=== PATIENT | female | born 1945 | race Caucasian/White ===

== ENCOUNTER 2023-02-26 09:15 | Outpatient (CLI) | payer MEDICARE, SELFPAY ==
--- NOTE | 2023-02-26 10:04 | ECHO_ITS ---
Patient Info Name: Shikha Amos Age: 77 years : 1945 Gender: Female Ht: 67 in Wt: 160 lbs BSA: 1.86 m2 HR: 89 bpm BP: 204 / 108 mmHg Heart Rhythm: Sinus Rhythm Technical Quality: Fair Exam Date: 02/26/2023 10:17 AM Exam Location: [facility] Pulmonary Patient Status: Outpatient Admit Date: 02/26/2023 Staff Ordering Physician: Tash Orozco PA-C Flipping Machine Operator: Neno Marinelli RDCS Attending Provider: Tash Orozco PA-C Referring Physician: Pam KEY; Exam Type: CA echo doppler color flow Study Info Indications - prominent right pulmonary artery Complete two-dimensional, color flow and Doppler transthoracic echocardiogram is performed. Summary 1. Complete two-dimensional, color flow and Doppler transthoracic echocardiogram is performed. 2. Left ventricular chamber dimension is normal. 3. Left ventricular systolic function is normal, estimated at 65-70%. 4. There is mildly increased left ventricular wall thickness. 5. Left ventricular septal wall motion is abnormal with septal motion related to bundle branch block. 6. The left ventricular diastolic function is grade I diastolic dysfunction. 7. Right ventricular chamber dimension is severely enlarged. 8. Right ventricular systolic function is normal. 9. Left atrial chamber dimension is severely enlarged. 10. Right atrial chamber dimension is severely enlarged. 11. Interatrial septum appears aneurysmal. 12. There is mild tricuspid valve regurgitation. 13. There is mild pulmonic regurgitation. Left Ventricle Left ventricular chamber dimension is normal. Left ventricular systolic function is normal, estimated at 65-70%. There is mildly increased left ventricular wall thickness. Left ventricular septal wall motion is abnormal with septal motion related to bundle branch block. The left ventricular diastolic function is grade I diastolic dysfunction. Right Ventricle Right ventricular chamber dimension is severely enlarged. Right ventricular systolic function is normal. Left Atria Left atrial chamber dimension is severely enlarged. Right Atria Right atrial chamber dimension is severely enlarged. Atrial Septum Interatrial septum appears aneurysmal. Aortic Valve The aortic valve is probable trileaflet. There is mild aortic valve sclerosis. There is no aortic valve stenosis. There is no aortic valve regurgitation. Pulmonic Valve There is mild pulmonic regurgitation. Mitral Valve The mitral valve has normal leaflets. There is no mitral valve stenosis. There is trace mitral valve regurgitation. The mitral valve annulus is mildly calcified. Tricuspid Valve There is mild tricuspid valve regurgitation. Pericardium/Pleural There is trivial pericardial effusion. Inferior Vena Cava Normal inferior vena cava with >50% collapse upon inspiration consistent with normal right atrial pressure, 3 mmHg. Aorta The aortic root size at the sinus of Valsalva is normal. Left Ventricular Outflow Tract Name Value Normal LVOT 2D LVOT Diameter 2.1 cm LVOT Doppler LVOT Peak Gradient 3 mmHg LVOT Mean Gradient 1 mmHg LVOT VTI 17 cm
== END 2023-02-26 09:16 | disposition home or self-care (01) ==
PROVIDERS: PCP Family Medicine; Visit Provider Physician Assistant Medical
DX: R93.89 Abnormal findings on diagnostic imaging of other specified body structures (principal); I07.1 Rheumatic tricuspid insufficiency; I37.1 Nonrheumatic pulmonary valve insufficiency
CPT/HCPCS: 93306

== ENCOUNTER 2023-03-20 09:21 | Outpatient (CLI) | payer MEDICARE, SELFPAY ==
--- NOTE | 2023-03-28 09:42 | WPDSLEEPSTUD ---
Sleep Study Date of Study: 03/19/23 Ordering Provider: Bogdan Marshall DO Interpreting Physician: Yenni Epps MD Sleep Study Type: Polysomnogram Height: 1.7 m Weight: 72.121 kg Body Mass Index: 24.9 Neck Circumference (inches): 14 [place]: 3 Reason for Sleep Study Severe right ventricular and biatrial enlargement on echocardiogram Sleep History Shikha Amos is a 77 year old female with history of hypertension, dyslipidemia who presented to the sleep lab for a sleep study ordered by her stacker straightener for evaluation of possible sleep apnea as a contributing factor to her right ventricular enlargement on echocardiogram. She never awakens from sleep short of breath. She does not have trouble sleeping when she has a cold. She never suddenly wakes up gasping for breath during the night. She never has breathing problems at night. She never sweats excessively at night. She never notices her heart pounding or beating irregularly during the night. She does not fall asleep during the day, involuntarily, or while driving. She never experiences loss of muscle tone with strong emotion. She never feels paralyzed on waking or falling asleep. She does not feel afraid of going to sleep. She does not have nightmares. She occasionally recalls her dreams. She does not feel sad or depressed. She occasionally feels anxiety or worry about things. She does not notice parts of her body jerk or kick during the night. She never feels crawling or aching feelings in her legs. She occasionally feels bothered by pain during the day and never awakened by pain during the night. She occasionally wakes up feeling stiff in the morning with pain in her neck, spine, or joints. Normal bedtime is around 12am on the weekdays and same on the weekends, taking 10 minutes to fall asleep. She typically gets about 6 hours of sleep per night. Her wake up time is around 6:30am on the weekdays and same on the weekends. She typically wakes up around once per night, awake for only a few minutes and she will go to the bathroom and come back to bed. Habits: Former tobacco smoker. Drinks about 1 caffeinated beverage per day. No alcohol or recreational substances. [facility] Past Medical History Medical History Abnormal skin growth Anxiety Dyslipidemia Hyperopia of both eyes Hypertension Screening for cholesterol level Screening for thyroid disorder Surgical History Surgical History H/O dilation and curettage Family History Family History Grandparent Heart disease Cerebrovascular accident Social History Social History Smoking status: Never smoker Alcohol intake: never Substance use: never Lack of Transportation: No Lack of Food: Never True Current Housing: I Have Housing Concerned About Future Housing: No Difficulty Paying Gas/Electric Bills: No Difficulty Paying for Meds: No Currently Unemployed: No Education: Associate Degree Difficulty w/ Childcare or Family Care: No Living arrangements: alone Occupation/Education: retired Gender identity (if verbalized by the patient): Female Medications Home Medications Medication Instructions Recorded Confirmed Type alprazolam 0.25 mg tablet (Xanax) 0.25 mg PO QHS PRN anxiety #10 tabs 01/02/23 03/06/23 Rx lisinopril 20 mg tablet 20 mg PO DAILY #90 tabs 01/02/23 03/06/23 Rx pravastatin 20 mg tablet 20 mg PO DAILY #90 tabs 03/06/23 03/06/23 Rx Sleep Procedure This test was performed using the [employer] multiple channel system including EOG, EEG, submental EMG, EKG, nasal and oral airflow using thermistors and nasal pressure sensors, chest and abdominal belts for body position data, and pulse oximetry. Video monitoring was also performed. The study was scored using [facility] guid
[2023-03-28 09:49] VITALS: BMI 24.9
== END 2023-03-20 13:40 | disposition home or self-care (01) ==
LOC: ANHCSM 09:22
PROVIDERS: PCP Family Medicine; Visit Provider Internal Medicine Cardiovascular Disease
DX: G47.10 Hypersomnia, unspecified (principal); G47.9 Sleep disorder, unspecified; I10 Essential (primary) hypertension; E78.5 Hyperlipidemia, unspecified
CPT/HCPCS: 95810

== ENCOUNTER 2025-01-24 13:17 | Outpatient (CLI) | payer MEDICARE, SELFPAY ==
--- NOTE | ~2025-01-24 | US_ITS ---
Procedure: Duplex Doppler examination of the bilateral carotids. Indication: Carotid bruit Technique: Real time, color-flow and pulse wave Doppler examination of the bilateral carotids was performed. Findings: Zhou scale ultrasonography of the right neck demonstrated no significant plaque. There was demonstrat ion of normal color-flow and Doppler waveforms within the right common, internal and external carotid arteries. The peak systolic velocities in the right common, internal and external carotid arteries w ere demonstrated to be 109 cm/sec, 109 cm/sec and 58 cm/sec respectively. The right ICA/CCA ratio was 1.0.The proximal right internal carotid artery demonstrates 0% stenosis relative to the normal dista l artery lumen diameter. Zhou scale sonography of the left neck demonstrated no significant plaque. There was demonstration of normal color-flow and wave forms within the left common, internal and external carotid arteries. The peak systolic velocities in the left common, internal and external carotid arteries were demonstrate d to be 119cm/sec, 72 cm/sec and 84 cm/sec respectively. The left ICA/CCA ratio was 0.6. The proximal left internal carotid artery demonstrates 0% stenosis relative to the normal distal artery lumen otis meter. There was antegrade flow demonstrated in the bilateral vertebral arteries. Impression: No hemodynamically significant stenosis of the bilateral internal carotid arteries. Antegrade flow in the bilateral vertebral arteries. Note: The methodology used is an indirect measurement validated against a direct method (such as the NASCET criteria) that compares diameters at the stenosis to the distal ICA. Reviewed, dictated and finalized at [facility]. Impression: No hemodynamically significant stenosis of the bilateral internal carotid arter ies. Antegrade flow in the bilateral vertebral arteries. Note: The methodology used is an indirect measurement validated against a direct meth od (such as the NASCET criteria) that compares diameters at the stenosis to the distal ICA.
== END 2025-01-24 13:18 | disposition home or self-care (01) ==
PROVIDERS: PCP Physician Assistant Medical; Visit Provider Physician Assistant Medical
DX: R09.89 Other specified symptoms and signs involving the circulatory and respiratory systems (principal)
CPT/HCPCS: 93880

== ENCOUNTER 2025-09-18 22:19 | Observation (INO) | payer MEDICARE, SELFPAY ==
--- NOTE | ~2025-09-18 | CT_ITS ---
EXAMINATION: CT abdomen pelvis w con DATE: 09/19/2025 00:03 INDICATION: Right upper quadrant abdominal pain. TECHNIQUE: Computed tomography (CT) of the abdomen and pelvis was performed with 100 mL Omnipaque 350 intravenous contrast. Automated exposure control and iterative reconstruction technique were employed. The dose-length product was 507.69 mGy-cm. COMPARISON: None. FINDINGS: The visualized portions of the lung bases demonstrate minimal atelectasis. No pleural effusion. Cardiomegaly is noted. No pericardial effusion. There is a small sliding hiatal hernia. The liver is normal. There are gallstones in the gallbladder, which is distended with wall thickening, mucosal discontinuity, and pericholecystic fat stranding, consistent with acute necrotic cholecystitis. The spleen, pancreas, and adrenal glands are normal. There are cysts in the kidneys measuring up to 2.1 cm on the left. There is diverticulosis of the colon without evidence of diverticulitis. The appendix is normal. There are no pathologically enlarged lymph nodes. There is no free intraperitoneal fluid. There is thoracolumbar levoscoliosis and severe spondylosis. There is severe osteoarthritis of the hips. IMPRESSION: 1. Acute necrotic cholecystitis. Reviewed, dictated and finalized at location E. ITY SYSTEM REPAIRER
[2025-09-18 22:24] VITALS: BP 147/103; PULSE 118; RESP 18; TEMP 36.4; O2SAT 100
--- NOTE | 2025-09-18 22:29 | ECG_ITS ---
Test Date: 2025-09-18 22:42:57 Measurements Intervals [place] Rate: 95 P: 50 ND: 137 QRS: -12 QRSD: 162 T: 50 QT: 378 QTc: 477 Interpretive Statements SINUS RHYTHM RIGHT BUNDLE BRANCH BLOCK VOLTAGE CRITERIA FOR LVH ST ABNORMALITY IN ANTEROLATERAL LEADS- CONSIDER ISCHEMIA BASELINE ARTIFACT- I, II, III, AVR, AVL, AVF ABNORMAL ECG No previous ECG available for comparison Electronically Signed On 09-19-2025 06:20:41 HVAC DESIGN ENGINEER by Bogdan Marshall D.O.
[2025-09-18 22:59] LABS: Hematocrit 49.3 % (37.0-47.0); Hemoglobin 16.1 g/dL (12.0-15.0); Immature Granulocyte Percent A 0.5 % (0-0.5); Lymphocytes Absolute Auto 1.80 K/mm3 (0.9-3.2); Mean Corpuscular HGB Conc 32.7 g/dl (32-36); Mean Corpuscular Hemoglobin 30.1 pg (26-34); Mean Corpuscular Volume 92.1 fl (80-100); Nucleated Red Blood Cells Absolute Auto 0.000 K/mm3 (0.0-0.012); Nucleated Red Blood Cells Perc 0.0 % (0.0-0.2); Platelet Count Result 342 k/mm3 (150-375); Red Blood Count 5.35 M/mm3 (4.2-5.4); White Blood Count 15.2 K/mm3 (4.5-10.0)
--- NOTE | 2025-09-18 23:14 | ED_ITS ---
HPI - Abdominal Pain General Chief Complaint: Abdominal Pain Stated Complaint: RUQ abd pain, nausea Time Seen by Provider: 09/18/25 22:29 History of Present Illness HPI narrative: 80-year-old female with history of hypertension hyperlipidemia presenting with epigastric pain and right upper quadrant pain radiating towards her back intermittently for the last several days. She is having episodes of what she thinks could be a gallbladder attack per her discussion with her friends. She is having pain in her epigastrium associated with nausea vomiting that is short- lived and comes in waves. No history of any abdominal surgeries or gallstones to her knowledge. No fever, chills, chest pain, shortness a breath. She was otherwise in her normal state of health. No recent medication changes. States she has not eat much today as she was having intermittent nausea and vomiting. No diarrhea or bloody bowel movements or hematemesis. No traumatic injuries. Related Data Home Medications ?Medication ?Instructions ?Recorded ?Confirmed ?Last Taken ?Type cyanocobalamin (vitamin B-12) 500 500 mcg PO DAILY 08/08/25 Unknown History mcg tablet Allergies Allergy/AdvReac Type Severity Reaction Status Date / Time No Known Allergies Allergy Verified 07/04/25 08:59 Review of Systems 2 Review of Systems: As reviewed above in HPI All systems reviewed & are unremarkable except as noted in HPI and below PMFSH Past Medical History Medical History Vitamin B12 deficiency Scoliosis Hypothyroidism Anxiety Dyslipidemia Hyperopia of both eyes Abnormal skin growth Screening for cholesterol level Hypertension Surgical History Surgical History H/O dilation and curettage Family History Family History Grandparent Heart disease Cerebrovascular accident Social History Social History Social History: 06/27/25 declined [facility] Smoking status: Never smoker Alcohol intake: never Substance use: never Lack of Transportation: No Lack of Food: Never True Current Housing: I Have Housing Concerned About Future Housing: No Difficulty Paying Gas/Electric Bills: No Difficulty Paying for Meds: No Currently Unemployed: No Education: Associate Degree Difficulty w/ Childcare or Family Care: No Living arrangements: alone Occupation/Education: retired Gender identity (if verbalized by the patient): Female Exam 2 Narrative: GENERAL: [Well-appearing, well-nourished, and in no acute distress.] HEAD: [Normocephalic, atraumatic.] EYES: [PERRLA and EOMI.] ENT: Nares clear, no rhinorrhea or epistaxis. Mucous membranes moist. NECK: Supple. CHEST: [Clear to auscultation. No respiratory distress.] HEART: [Regular rate and rhythm]. No murmur heard. [Normal peripheral pulses.] ABDOMEN: tender in the epigastrium and right upper quadrant with a positive Carnes sign. No rebound guarding or peritonitis. EXTREMITIES: Normal range of motion. [No edema.] SKIN: Warm, dry, no rash. NEURO: [No focal deficits]. Alert and oriented [x3.] PSYCH: [Normal mood and affect.] Course Vital Signs Vital signs: Vital Signs Temperature 36.4 C 09/18/25 22:24 Pulse Rate 118 H 09/18/25 22:24 Respiratory Rate 18 09/18/25 22:24 Blood Pressure 147/103 H 09/18/25 22:24 Pulse Oximetry 100 09/18/25 22:24 Temperature 36.4 C 09/18/25 22:24 Pulse Rate 118 H 09/18/25 22:24 Respiratory Rate 18 09/18/25 22:24 Blood Pressure 147/103 H 09/18/25 22:24 Pulse Oximetry 100 09/18/25 22:24 [facility] Narrative Medical decision making narrative: 80-year-old female with history of hypertension hyperlipidemia presenting with epigastric pain and right upper quadrant pain radiating towards her back intermittently for the last several days. She is having episodes of what she thinks could be a gallbladder attack per her discussion with her friends. She is having pain in her epigastrium associated with nausea vomiting that is short- lived and comes in waves. No history of any abdominal surgeries or gallstones to her knowledge. No fever, chills, chest pain, shortness a breath. She was otherwise in her normal state of health. No recent medication changes. States she has not eat much today as she was having intermittent nausea and vomiting. No diarrhea or bloody bowel movements or hematemesis. No traumatic injuries. Tender in the epigastrium and right upper quadrant with a positive Carnes sign. No rebound guarding or peritonitis. Mildly tachycardic, normal blood pressure mildly elevated but chronic. No tachypnea, fever, hypoxemia. Symptoms consistent with cholelithiasis, cholecystitis, less likely cholangitis or renal colic/ pancreatitis/ gastroenteritis. given her age and risk factors epigastric pain could also be referred from cardiac causes such as ACS. EKG troponin laboratory studies and a CT scan ordered. She is currently pain-free and symptom-free as she states her pain symptoms only common waves and currently she has no symptoms. Placed on bus driver/monitor and doing well. Heart rate resolved pulse 92 at this time, hemodynamically stable. Will keep monitoring her a while workup and CT and workup ordered. LFTs largely unremarkable. Patient's heart rate came down with fluids and starting antibiotics after we reviewed the CT scan showing concerns for cholecystitis. She has a inflamed distended gallbladder with pericholecystic fluid and stone. No obvious obstruction. Some early mucosal breakdown after discussion with radiologist. Spoke to General surgery Dr. Leblanc who will see the patient this morning for likely surgical interventions and patient is made NPO now and will be admitted to the hospitalist service. Spoke to Arturo the mid- level provider covering the hospitalist service and patient was placed on to a telemetry monitored bed. Zosyn ordered, lactic acid and blood cultures obtained, additional fluids and p.r.n. medications obtained in ordered. Differential Diagnosis Differential Diagnosis: cholelithiasis, cholecystitis, less likely cholangitis or renal colic/ pancreatitis/ gastroenteritis. given her age and risk factors epigastric pain could also be referred from cardiac causes such as ACS Lab Data MDM Lab Attestation statement: I personally reviewed the patient's lab results. 09/18/25 22:52 09/18/25 22:52 Labs: Lab Results 09/18/25 Range/Units 22:52 WBC 15.2 H (4.5-10.0) K/mm3 RBC 5.35 (4.2-5.4) M/mm3 Hgb 16.1 H (12.0-15.0) g/dL Hct 49.3 H (37.0-47.0) % MCV 92.1 (80-100) fl MCH 30.1 (26-34) pg MCHC 32.7 (32-36) g/dl RDW 12.5 (11.5-14.5) % Plt Count 342 (150-375) k/mm3 MPV 8.7 (7.4-10.4) fl Immature Gran % (Auto) 0.5 (0-0.5) % Neut % (Auto) 78.1 H (45.5-73.1) % Lymph % (Auto) 11.9 L (18.3-44.2) % Piatt % (Auto) 8.2 (2.6-8.5) % Eos % (Auto) 0.7 (0-4.4) % Baso % (Auto) 0.6 (0.2-1.2) % Lymph # (Auto) 1.80 (0.9-3.2) K/mm3 Piatt # (Auto) 1.3 H (0.1-0.6) K/mm3 Eos # (Auto) 0.1 (0-0.3) K/mm3 Baso # (Auto) 0.1 (0.0-0.1) K/mm3 Abs Immat Gran (auto) 0.07 H (0.00-0.031) K/mm3 Absolute Neuts (auto) 11.9 H (1.3-6.7) K/mm3 Absolute Nucleated RBC 0.000 (0.0-0.012) K/mm3 Nucleated RBC % 0.0 (0.0-0.2) % Sodium Pending Potassium Pending Chloride Pending Carbon Dioxide Pending Anion Gap Pending BUN Pending Creatinine Pending Estim Creat Clear Calc Pending Estimated GFR Pending Glucose Pending Calcium Pending Total Bilirubin Pending AST Pending ALT Pending Alkaline Phosphatase Pending Troponin I Pending Total Protein Pending Albumin Pending Lipase Pending Imaging Data Attestation: I personally reviewed and interpreted this imaging study as follows: My impression: acute zoë Radiologist's impression: acute zoë Critical Care Time Critical Care Time Critical Care Time: Yes Time Type: Intermittent Initial evaluation, discuss w/ involved parties, attempting to gather old records: 10 minutes Documenting medical record: 5 minutes Review of results (EKG's, labs, imaging): 5 minutes Serial repeat bedside evaluation: 10 minutes Discussing case with multiple memebers of the care team and consultants: 5 minutes Total Critical Care Time: 35 Discharge Plan Discharge Clinical Impression: Acute calculous cholecystitis Patient Disposition: Still a Patient Condition: Stable Instructions: Antibiotic Form Patient Language: Solomon Islander Prescriptions: No Action cyanocobalamin (vitamin B-12) 500 mcg tablet 500 mcg PO DAILY pravastatin 20 mg tablet See Rx Instructions .ROUTE .COMPLEX Qty: 90 2RF Dose Instruction: Take 1 tablet by mouth once daily Rx Instructions: Take 1 tablet by mouth once daily lisinopril 20 mg tablet 20 mg PO DAILY Qty: 90 1RF Follow-up/Referrals: Tash Orozco PA-C [Primary Care Provider, [facility]] Time of Disposition: 00:51
[2025-09-18 23:17] LABS: Alanine Aminotransferase 18 U/L (6-35); Albumin Level 3.9 g/dL (3.5-5.1); Alkaline Phosphatase 88 U/L (38-126); Anion Gap 7 mmol/L (4-12); Aspartate Amino Transferase 23 U/L (14-36); Bilirubin,Total 1.5 mg/dL (0.2-1.3); Blood Urea Nitrogen 14 mg/dL (7-17); Calcium 9.1 mg/dL (8.4-10.2); Carbon Dioxide 23 mmol/L (22-30); Chloride 104 mmol/L (98-107); Estimated CRCL calculation 33 ml/min; Estimated Glomerular Filt Rate 47; Glucose 175 mg/dL (65-110); Lipase 129 U/L (23-300); Potassium 3.6 mmol/L (3.4-5.0); Sodium 134 mmol/L (137-145); Total Protein 7.4 g/dL (6.3-8.2)
[2025-09-18 23:28] LABS: Troponin I < 0.012 ng/mL (0.000-0.034)
[2025-09-19] VITALS (19 sets, daily range): BP systolic 106–157; BP diastolic 52–70; PULSE 68–93; RESP 17–20; TEMP 36.2–36.9; O2SAT 94–100; BMI 26.1
[2025-09-19 00:14] LABS: Add Urine Microscopic? YES; Appearance Urine Turbid (Clear); Glucose Urine UA Trace mg/dL (Negative); Leukocyte Esterase Ur 3+ LEU/UL (Negative); Need Manual Microscopic Reviewed; Nitrate Urine Positive (Negative); Non Pathogenic Casts >20; Specific Grav Ur 1.021 (1.001-1.035)
[2025-09-19] MEDS: LACTATED RINGERS 1,000 ML 999 ML IV CONT ×2 (00:46→00:47)
[2025-09-19] MEDS: PIPERACILLIN/TAZOBACTAM SOD 4.5 GM in SODIUM CHLORIDE 0.9% IV 100 ML 200 ML IVPB (00:47)
--- NOTE | 2025-09-19 00:49 | PM.IMHP2 ---
H&P: HPI History of Present Illness Date/Time: 09/19/25 00:49 Chief Complaint: Abdominal pain, nausea, acute cholecystitis Narrative: The patient is an 80-year-old female who presents to the hospital with a chief complaint of abdominal pain. The pain began on evening. She describes the pain as located in the upper abdomen. The pain was at its worst on night, then tapered off, and subsequently worsened again last night (Friday night). The patient endorses nausea and vomiting on but denies any currently. She denies any fever or chills. The patient notes she has not had anything to eat or drink since yesterday morning. Workup in the ER showed elevated WBC of 15.2, Sodium 134, Potassium 3.6, Cr mildly elevated at 1.12 with estimated CrCl of 33 and eGFR of 47 indicating MAHSA. Urinalysis also profoundly dirty appearing but also heavily contaminated with epithelial cells and indications of dehydration with >20 urine casts and 2+ urine ketones. Patient denies dysuria, fever or LOWER abdominal pain, indicating only epigastric and RUQ pain. Review of Systems Review of Systems: All systems reviewed & are unremarkable except as noted in HPI and below PMFSH Past Medical History Medical History Vitamin B12 deficiency Scoliosis Hypothyroidism Anxiety Dyslipidemia Hyperopia of both eyes Abnormal skin growth Screening for cholesterol level Hypertension Surgical History Surgical History H/O dilation and curettage Family History Family History Grandparent Heart disease Cerebrovascular accident Social History Social History Social History: 06/27/25 declined [facility] Smoking status: Former smoker Alcohol intake: never Substance use: never Lack of Transportation: No Lack of Food: Never True Current Housing: I Have Housing Concerned About Future Housing: No Difficulty Paying Gas/Electric Bills: No Difficulty Paying for Meds: No Currently Unemployed: No Education: Associate Degree Difficulty w/ Childcare or Family Care: No Living arrangements: alone Occupation/Education: retired Gender identity (if verbalized by the patient): Female Spiritual care concerns: No Meds Home Medications and Allergies Home Medications ?Medication ?Instructions ?Recorded ?Confirmed ?Type cyanocobalamin (vitamin B-12) 500 500 mcg PO DAILY 07/02/24 09/19/25 History mcg tablet pravastatin 20 mg tablet See Rx Instructions .Route 05/14/25 09/19/25 Rx .COMPLEX #90 tabs lisinopril 20 mg tablet 20 mg PO DAILY #90 tabs 06/29/25 09/19/25 Rx Allergies Allergy/AdvReac Type Severity Reaction Status Date / Time No Known Allergies Allergy Verified 09/19/25 05:01 Vital Signs Vital Signs - 24 hr 09/18/25 22:24 09/19/25 00:28 Temperature 36.4 C 36.4 C Pulse Rate 118 H Respiratory Rate 18 Blood Pressure 147/103 H Pulse Oximetry 100 Exam Narrative: GENERAL: Appears younger than stated age, no acute distress HEAD: Normocephalic, atraumatic. ENT:? Mucous membranes moist. CHEST: Clear to auscultation.? No respiratory distress. HEART: Borderline tachycardic rate and regular rhythm. ? Normal peripheral pulses. ABDOMEN: Soft, epigastric/right upper quadrant tenderness to palpation without guarding or rebound EXTREMITIES: Normal range of motion. No peripheral edema. SKIN: Warm dry normal color NEURO: Alert and oriented x3. PSYCH: Normal mood and affect Results Labs Labs: Short CBC 09/18/25 Range/Units 22:52 WBC 15.2 H (4.5-10.0) K/mm3 Hgb 16.1 H (12.0-15.0) g/dL Hct 49.3 H (37.0-47.0) % Plt Count 342 (150-375) k/mm3 [facility] 09/18/25 22:52 Sodium 134 L Potassium 3.6 Chloride 104 Carbon Dioxide 23 BUN 14 Creatinine 1.12 H Glucose 175 H Calcium 9.1 Cardiac Enzymes 09/18/25 Range/Units 22:52 Troponin I < 0.012 (0.000-0.034) ng/mL Liver Function 09/18/25 Range/Units 22:52 Total Bilirubin 1.5 H (0.2-1.3) mg/dL AST 23 (14-36) U/L ALT 18 (6-35) U/L Alkaline Phosphatase 88 (38-126) U/L Albumin 3.9 (3.5-5.1) g/dL Urine 09/18/25 Range/Units 23:50 Urine Color Dark yellow (Yellow) Urine Appearance Turbid H (Clear) Urine pH 5.5 (5.0-9.0) Ur Specific [place] 1.021 (1.001-1.035) Urine Protein 2+ H (Negative) mg/dL Urine Glucose (UA) Trace H (Negative) mg/dL Pulse Oximetry SpO2 results: 94-100% on room air Attestation: I personally reviewed and interpreted this pulse oximetry as follows: Interpretation: No need for supplemental oxygenation at this time Imaging CT scan - abdomen: My impression: My independent interpretation of CT scan of the abdomen and pelvis with IV contrast shows significant gallbladder distention with inflammation of the gallbladder wall, pericholecystic fluid, gallstones. Moderate stool burden with likely diverticulosis noted and borderline enlarged appendix present. Mild hydronephrosis without obvious ureteral obstruction and a left simple renal cyst also noted. Quality VTE Prophylaxis VTE prophylaxis: mechanical ordered If No VTE Prophylaxis Answer both mechanical and pharmacologic: Reason no pharmacologic proph: medical contraindication (OR planned) Assessment and Plan Assessment and plan (1) Acute calculous cholecystitis: Code(s): K80.00 - Calculus of gallbladder with acute cholecystitis without obstruction Status: Acute Assessment and Plan: -Dr. Leblanc consulted by ER, will see today -NPO for possible OR -Zosyn given in ER, will continue (2) MAHSA (acute kidney injury): Code(s): N17.9 - Acute kidney failure, unspecified Status: Acute Assessment and Plan: -IV fluids infusing -Highly abnormal UA with signs of dehydration -Recheck labs late morning draw, timed for 0800 -If CrCl does not go above 40 after IV fluids with 09/19 0800 labs, Zosyn dose should be reduced to 2.25 g Q6H (3) Abnormal urinalysis: Code(s): R82.90 - Unspecified abnormal findings in urine Status: Acute Assessment and Plan: -Denies dysuria but appears infected with positive nitrates -IV Zosyn for cholecystitis -No prior cultures available (4) Hypertension: Qualifiers: Hypertension type: primary hypertension Qualified Code(s): I10 - Essential (primary) hypertension Code(s): I10 - Essential (primary) hypertension Status: Chronic Assessment and Plan: -Takes lisinopril daily, hold on 09/19, resume on 09/20 Consultations Consultations: I have discussed the care of this pt with the consulting providers. (Emergency department consulted general surgery, Dr. Leblanc, who will see the patient in the morning) Time Spent with Patient Time with patient: 75 minutes or greater Hospitalist MIPS Advance Care Plan I have confirmed that the patient's Advanced Care Plan is present, code status is documented, or surrogate decision maker is listed in patient medical record.: Yes Medication Reconciliation I have utilized all available resources to obtain, update and review the patients current medications (includes all prescriptions, OTC, herbals, cannabis, and nutritional supplements).: Yes
--- NOTE | 2025-09-19 04:39 | ADMGEN ---
This patient, Shikha Amos, was admitted to 2 Medical Room 249-01.Arrived to unit @0125. Patient oriented to hospital policies and general routines including ID bracelet, bed and alarms, visiting hours, pain management, procedures, bathroom and other care routines, personal items, smoking policy, room service/diet, and visiting hours. Information on how to activate the Rapid Response Team has been discussed. Patient are encouraged to report perceived risks to care and to ask questions if they do not understand what they are told or what they should do.
--- NOTE | 2025-09-19 04:54 | ADMGEN ---
This patient, Shikha Amos, was admitted to Medical Room 249-01. Patient/family oriented to hospital policies and general routines including ID bracelet, bed and alarms, visiting hours, pain management, procedures, bathroom and other care routines, personal items, smoking policy, room service/diet, and visiting hours. Information on how to activate the Rapid Response Team has been discussed. Patient/Family are encouraged to report perceived risks to care and to ask questions if they do not understand what they are told or what they should do.
--- NOTE | 2025-09-19 07:18 | P.PNIM_ITS ---
Assessment and Plan Assessment and Plan (1) Acute calculous cholecystitis: Code(s): K80.00 - Calculus of gallbladder with acute cholecystitis without obstruction Status: Acute Assessment and Plan: - CT A/P with acute necrotic cholecystitis - afebrile, HDS - AST 420, ALT 249, alk phos 183, T bili 3.9 - may require intraoperative IOC vs. ERCP - WBC 15 - general surgery consulted. - NPO for possible OR - continue IV Zosyn (2) MAHSA (acute kidney injury): Code(s): N17.9 - Acute kidney failure, unspecified Status: Acute Assessment and Plan: - admit Cr 1.1, baseline 0.8 - resolved with IV fluids - monitor BMP (3) Abnormal urinalysis: Code(s): R82.90 - Unspecified abnormal findings in urine Status: Acute Assessment and Plan: -Denies urinary symptoms. -on IV Zosyn for cholecystitis, but not feel specific treatment for UTI is needed (4) Hypertension: Qualifiers: Hypertension type: primary hypertension Qualified Code(s): I10 - Essential (primary) hypertension Code(s): I10 - Essential (primary) hypertension Status: Chronic Assessment and Plan: -on lisinopril daily, held perioperatively Plan Code status: full code DVT prophylaxis: SCDs Dispo:TBD pending course Medical Record Review I have reviewed the following patient records and this information was taken into consideration when formulating the assessment and plan.: previous labs Subjective Date/time seen: 09/19/25 07:18 Interval history: Patient seen and examined at bedside. Minimal pain this AM. Denies nausea, vomiting. Review of Systems Review of Systems: All systems reviewed & are unremarkable except as noted in HPI and below Exam Narrative: General: NAD Eyes: EOMI ENT: neck supple Cardiovascular: Regular rate and rhythm Respiratory: Clear to auscultation, respirations even and unlabored on RA Gastrointestinal: Soft, + Carnes's sign Genitourinary: no suprapubic tenderness Musculoskeletal: No edema Skin: warm, dry Neuro: Alert. Psych: Mood appropriate Objective Data Vital Signs Vital Signs: Vital Signs - 24 hr 09/18/25 22:24 09/19/25 00:28 09/19/25 01:01 Temperature 97.6 F 97.6 F 98.5 F Pulse Rate 118 H 93 Respiratory Rate 18 18 Blood Pressure 147/103 H 130/52 L Pulse Oximetry 100 94 Oxygen Delivery 09/19/25 01:35 09/19/25 01:51 09/19/25 04:00 Temperature Pulse Rate 92 89 Respiratory Rate Blood Pressure Pulse Oximetry Oxygen Delivery Room Air Intake/Output Intake/Output: Intake & Output 09/16/25 09/17/25 09/18/25 09/19/25 23:59 23:59 23:59 23:59 Output Total 800 Balance -800 Meds/Results Medications: Active Medications Generic Name Dose Route Start Last Admin Trade Name Freq PRN Reason Stop Dose Admin Acetaminophen 650 mg 09/19/25 00:48 Acetaminophen 325 Mg Tablet PO Q4H PRN Mild Pain (1-3) or Fever Hydrocodone Bitart/Acetaminophen 1 tab 09/19/25 00:48 Hydrocodone/Acetaminophen (*Crx) 5-325 Mg Tablet PO Q4H PRN Pain Rated 4-6 Cyanocobalamin 500 mcg 09/20/25 09:00 Cyanocobalamin 500 Mcg Tablet PO DAILY COUNTS INCLUDE 234 BEDS AT THE [facility] Hydromorphone HCl 0.5 mg 09/19/25 00:48 Hydromorphone Hcl Inj (*Crx) 1 Mg/Ml Syr IV PUSH Q4H PRN Pain Rated 7-10 Lactated Ringer's 1,000 mls @ 110 mls/hr 09/19/25 00:50 Lr - Lactated Ringers Iv IV CONT .Q9H6M COUNTS INCLUDE 234 BEDS AT THE [facility] Piperacillin Sod/Tazobactam 50 mls @ 100 mls/hr 09/19/25 07:00 Sod 3.375 gm/ Sodium Chloride IVPB Q6H COUNTS INCLUDE 234 BEDS AT THE [facility] Lisinopril 20 mg 09/20/25 09:00 Lisinopril 20 Mg Tablet PO DAILY COUNTS INCLUDE 234 BEDS AT THE [facility] Ondansetron HCl 4 mg 09/19/25 00:48 Ondansetron Inj 4 Mg/2 Ml Vial IV PUSH Q4H PRN Nausea Pravastatin Sodium 20 mg 09/20/25 09:00 Pravastatin Sodium 20 Mg Tablet PO DAILY COUNTS INCLUDE 234 BEDS AT THE [facility] Radiology Results: ITS Impressions Abdomen/Pelvis CT 09/19/25 06:36 IMPRESSION: 1. Acute necrotic cholecystitis. Labs Labs: Laboratory Results - last 24 hr 09/18/25 09/18/25 09/19/25 22:52 23:50 00:49 WBC 15.2 H RBC 5.35 Hgb 16.1 H Hct 49.3 H MCV 92.1 MCH 30.1 MCHC 32.7 RDW 12.5 Plt Count 342 MPV 8.7 Immature Gran % (Auto) 0.5 Neut % (Auto) 78.1 H Lymph % (Auto) 11.9 L [place] % (Auto) 8.2 Eos % (Auto) 0.7 Baso % (Auto) 0.6 Lymph # (Auto) 1.80 [place] # (Auto) 1.3 H Eos # (Auto) 0.1 Baso # (Auto) 0.1 Abs Immat Gran (auto) 0.07 H Absolute Neuts (auto) 11.9 H Absolute Nucleated RBC 0.000 Nucleated RBC % 0.0 Sodium 134 L Potassium 3.6 Chloride 104 Carbon Dioxide 23 Anion Gap 7 BUN 14 Creatinine 1.12 H Estim Creat Clear Calc 33 Estimated GFR 47 L Glucose 175 H Lactic Acid 1.0 Calcium 9.1 Total Bilirubin 1.5 H AST 23 ALT 18 Alkaline Phosphatase 88 Troponin I < 0.012 Total Protein 7.4 Albumin 3.9 Lipase 129 Urine Color Dark yellow Urine Appearance Turbid H Urine pH 5.5 Ur Specific [place] 1.021 Urine Protein 2+ H Urine Glucose (UA) Trace H Urine Ketones 2+ H Ur Blood (Man) Non-hemolyzed trace H Urine Nitrate Positive H Urine Bilirubin 2+ H Urine Urobilinogen 4.0 H Add Ur Microanalysis Reviewed Leukocyte Esterase Rfl 3+ H Urine RBC 11-20 H Urine WBC >100 H Ur Squamous Epith Cells Many H Urine Bacteria 4+ H Urine Casts >20 Quality VTE Prophylaxis VTE prophylaxis: mechanical ordered
[2025-09-19 07:19] LABS: Hemoglobin A1C 5.3 % (<5.7)
[2025-09-19] MEDS: PIPERACILLIN/TAZOBACTAM SOD 3.375 GM in SODIUM CHLORIDE 0.9% IV 50 ML 100 ML IVPB ×2 (07:40→14:30)
[2025-09-19] MEDS: LACTATED RINGERS 1,000 ML 110 ML IV CONT (08:14)
[2025-09-19 08:39] LABS: Hematocrit 45.1 % (37.0-47.0); Hemoglobin 15.1 g/dL (12.0-15.0); Immature Granulocyte Percent A 0.3 % (0-0.5); Lymphocytes Absolute Auto 1.88 K/mm3 (0.9-3.2); Mean Corpuscular HGB Conc 33.5 g/dl (32-36); Mean Corpuscular Hemoglobin 30.4 pg (26-34); Mean Corpuscular Volume 90.7 fl (80-100); Nucleated Red Blood Cells Absolute Auto 0.000 K/mm3 (0.0-0.012); Nucleated Red Blood Cells Perc 0.0 % (0.0-0.2); Platelet Count Result 274 k/mm3 (150-375); Red Blood Count 4.97 M/mm3 (4.2-5.4); White Blood Count 8.8 K/mm3 (4.5-10.0)
[2025-09-19 09:05] LABS: Alanine Aminotransferase 249 U/L (6-35); Albumin Level 3.3 g/dL (3.5-5.1); Alkaline Phosphatase 183 U/L (38-126); Anion Gap 2 mmol/L (4-12); Aspartate Amino Transferase 420 U/L (14-36); Bilirubin,Total 3.9 mg/dL (0.2-1.3); Blood Urea Nitrogen 12 mg/dL (7-17); Calcium 8.6 mg/dL (8.4-10.2); Carbon Dioxide 27 mmol/L (22-30); Chloride 105 mmol/L (98-107); Estimated CRCL calculation 44 ml/min; Estimated Glomerular Filt Rate > 60; Glucose 104 mg/dL (65-110); Lipase 131 U/L (23-300); Potassium 3.8 mmol/L (3.4-5.0); Sodium 134 mmol/L (137-145); Total Protein 6.7 g/dL (6.3-8.2)
--- NOTE | 2025-09-19 10:59 | PM.CNGS ---
Assessment and Plan Assessment and plan (1) Acute calculous cholecystitis: Code(s): K80.00 - Calculus of gallbladder with acute cholecystitis without obstruction Status: Acute Assessment and Plan: Patient presented to the ED yesterday with complaints of epigastric/RUQ pain and nausea/vomiting since last . It had gotten better over the weekend, but again increased in severity yesterday. Labs revealed elevated white blood cell count and bilirubin of 1.5. CT demonstrated acute necrotic cholecystitis. Patient has been on IV Zosyn. Today's labs demonstrated elevated bilirubin of 3.9 and all other liver enzymes elevated beyond normal limit. WBC normalized to 8.8. Will proceed with laparoscopic cholecystectomy with Dr. Leblanc this afternoon. May consider IOC. Will likely monitor patient overnight and recheck labs tomorrow morning. Risks, benefits, alternatives, and postop restrictions discussed with patient at bedside. She understands and wishes to proceed with surgery. Plan Discussed patient's case and plan of care with Dr. Leblanc. History of Present Illness Consult details Consult date: 09/19/25 Reason for consult: other (Acute cholecystitis) Requesting physician: Eze Valiente MD Narrative: Patient is a 80-year-old female with history of dyslipidemia and hypertension who we have been asked to see in surgical consultation for acute cholecystitis. Patient first started feeling nauseous and throwing up on Friday night. She also noted assoicated pain under her ribcage at this time. She felt like it was hard to take a deep breath. Also notes that the pain radiated to her back in between her shoulder blades. Patient stated that she recalled eating fajitas the night before. The pain eventually subsided on it's own and patient made it through Friday and Friday with minimal pain that she described as soreness. However, pain increased in severity yesterday, along with nausea, prompting patient to present to the ED. Upon arrival, labs demonstrated a of 15.2. Bilirubin 1.5, but all other liver enzymes normal. Patient was also noted to be tachycardic and hypertensive. CT of the abdomen and pelvis demonstrated cholelithiasis with distended wall thickening of the gallbladder, mucosal discontinuity, and pericholecystic fat stranding, consistent with acute necrotic cholecystitis. General surgery team consulted at this time. Started on IV Zosyn. Upon today's evaluation, patient states that her pain is much improved from yesterday. WBC decreased to 8.8, however bilirubin increased to 3.9 and AST/ALT/ALP all increased from yesterday. Tachycardia resolved. Patient has not eaten since yesterday. Last BM was two days ago. Patient denies any previous abdominal surgeries. She does recall having similar symptoms to this episode two years ago. She denies any imaging or studies that confirmed gallbladder etiology. [facility] Past Medical History Medical History Vitamin B12 deficiency Scoliosis Hypothyroidism Anxiety Dyslipidemia Hyperopia of both eyes Abnormal skin growth Screening for cholesterol level Hypertension Surgical History Surgical History H/O dilation and curettage Family History Family History Grandparent Heart disease Cerebrovascular accident Social History Social History Social History: 06/27/25 declined [facility] Smoking status: Former smoker Alcohol intake: never Substance use: never Lack of Transportation: No Lack of Food: Never True Current Housing: I Have Housing Concerned About Future Housing: No Difficulty Paying Gas/Electric Bills: No Difficulty Paying for Meds: No Currently Unemployed: No Education: Associate Degree Difficulty w/ Childcare or Family Care: No Living arrangements: alone Occupation/Education: retired Gender identity (if verbalized by the patient): Female Spiritual care concerns: No Meds Home Medications and Allergies Home Medications ?Medication ?Instructions ?Recorded ?Confirmed ?Type cyanocobalamin (vitamin B-12) 500 500 mcg PO DAILY 07/02/24 09/19/25 History mcg tablet pravastatin 20 mg tablet See Rx Instructions .Route 05/14/25 09/19/25 Rx .COMPLEX #90 tabs lisinopril 20 mg tablet 20 mg PO DAILY #90 tabs 06/29/25 09/19/25 Rx Allergies Allergy/AdvReac Type Severity Reaction Status Date / Time No Known Allergies Allergy Verified 09/19/25 05:01 Vital Signs Vital Signs - 24 hr 09/18/25 22:24 09/19/25 00:28 09/19/25 01:01 Temperature 97.6 F 97.6 F 98.5 F Pulse Rate 118 H 93 Respiratory Rate 18 18 Blood Pressure 147/103 H 130/52 L Pulse Oximetry 100 94 Oxygen Delivery 09/19/25 01:35 09/19/25 01:51 09/19/25 04:00 Temperature Pulse Rate 92 89 Respiratory Rate Blood Pressure Pulse Oximetry Oxygen Delivery Room Air 09/19/25 06:00 09/19/25 07:40 09/19/25 07:40 Temperature 98.0 F Pulse Rate 76 85 Respiratory Rate 18 Blood Pressure 151/67 H Pulse Oximetry 97 Oxygen Delivery Room Air 09/19/25 08:13 Temperature Pulse Rate Respiratory Rate Blood Pressure Pulse Oximetry 97 Oxygen Delivery Room Air Exam Const: General: comfortable and no acute distress Eyes: General: appearance normal, both eyes and all related structures Neck: Neck: supple Resp: Effort & Inspection: normal respiratory effort Cardio: Rate: regular rate GI: Inspection: non-distended GI Palp: Yes Soft to palpation, Yes Tenderness to palpation present (GI) (minimal RUQ) and No Guarding due to palpation present (GI) Auscultation: Hypoactive bowel sounds present Results Labs 09/19/25 08:23 09/19/25 08:23 Labs: Abnormal lab results 09/18/25 09/18/25 09/19/25 Range/Units 22:52 23:50 08:23 WBC 15.2 H (4.5-10.0) K/mm3 Hgb 16.1 H 15.1 H (12.0-15.0) g/dL Hct 49.3 H (37.0-47.0) % Neut % (Auto) 78.1 H (45.5-73.1) % Lymph % (Auto) 11.9 L (18.3-44.2) % [place] % (Auto) 9.4 H (2.6-8.5) % [place] # (Auto) 1.3 H 0.8 H (0.1-0.6) K/mm3 Abs Immat Gran (auto) 0.07 H (0.00-0.031) K/mm3 Absolute Neuts (auto) 11.9 H (1.3-6.7) K/mm3 Sodium 134 L 134 L (137-145) mmol/L Anion Gap 2 L (4-12) mmol/L Creatinine 1.12 H (0.7-1.0) mg/dL Estimated GFR 47 L (59 - ) Glucose 175 H (65-110) mg/dL Total Bilirubin 1.5 H 3.9 H (0.2-1.3) mg/dL AST 420 H (14-36) U/L ALT 249 H (6-35) U/L Alkaline Phosphatase 183 H (38-126) U/L Albumin 3.3 L (3.5-5.1) g/dL Urine Appearance Turbid H (Clear) Urine Protein 2+ H (Negative) mg/dL Urine Glucose (UA) Trace H (Negative) mg/dL Urine Ketones 2+ H (Negative) mg/dL Ur Blood (Man) Non-hemolyzed trace H (Negative) Urine Nitrate Positive H (Negative) Urine Bilirubin 2+ H (Negative) Urine Urobilinogen 4.0 H (<2.0) mg/dL Leukocyte Esterase Rfl 3+ H (Negative) MEMO/UL Urine RBC 11-20 H (0-2) /hpf Urine WBC >100 H (0-3) /hpf Ur Squamous Epith Cells Many H (Few) /hpf Urine Bacteria 4+ H /hpf Diabetes panel 09/18/25 09/19/25 Range/Units 22:52 08:23 Sodium 134 L 134 L (137-145) mmol/L Potassium 3.6 3.8 (3.4-5.0) mmol/L Chloride 104 105 (98-107) mmol/L Carbon Dioxide 23 27 (22-30) mmol/L BUN 14 12 (7-17) mg/dL Creatinine 1.12 H 0.83 (0.7-1.0) mg/dL Glucose 175 H 104 (65-110) mg/dL Hemoglobin A1c 5.3 (<5.7) % Calcium 9.1 8.6 (8.4-10.2) mg/dL AST 23 420 H (14-36) U/L ALT 18 249 H (6-35) U/L Alkaline Phosphatase 88 183 H (38-126) U/L Total Protein 7.4 6.7 (6.3-8.2) g/dL Albumin 3.9 3.3 L (3.5-5.1) g/dL Calcium panel 09/18/25 09/19/25 Range/Units 22:52 08:23 Calcium 9.1 8.6 (8.4-10.2) mg/dL Albumin 3.9 3.3 L (3.5-5.1) g/dL Pituitary panel 09/18/25 09/19/25 Range/Units 22:52 08:23 Sodium 134 L 134 L (137-145) mmol/L Potassium 3.6 3.8 (3.4-5.0) mmol/L Chloride 104 105 (98-107) mmol/L Carbon Dioxide 23 27 (22-30) mmol/L BUN 14 12 (7-17) mg/dL Creatinine 1.12 H 0.83 (0.7-1.0) mg/dL Glucose 175 H 104 (65-110) mg/dL Calcium 9.1 8.6 (8.4-10.2) mg/dL Adrenal panel 09/18/25 09/19/25 Range/Units 22:52 08:23 Sodium 134 L 134 L (137-145) mmol/L Potassium 3.6 3.8 (3.4-5.0) mmol/L Chloride 104 105 (98-107) mmol/L Carbon Dioxide 23 27 (22-30) mmol/L BUN 14 12 (7-17) mg/dL Creatinine 1.12 H 0.83 (0.7-1.0) mg/dL Glucose 175 H 104 (65-110) mg/dL Calcium 9.1 8.6 (8.4-10.2) mg/dL Total Bilirubin 1.5 H 3.9 H (0.2-1.3) mg/dL AST 23 420 H (14-36) U/L ALT 18 249 H (6-35) U/L Alkaline Phosphatase 88 183 H (38-126) U/L Total Protein 7.4 6.7 (6.3-8.2) g/dL Albumin 3.9 3.3 L (3.5-5.1) g/dL All other labs normal.
--- NOTE | 2025-09-19 15:46 | WPDANESEPPF ---
Anes - Initial Pre Proc Eval Procedure: Operation Date: 09/19/25 17:30 Proposed Procedures p Laparoscopic Cholecystectomy, Possible Open - Nitish Leblanc DO Date/Time: 09/19/25 15:46 Surgeon: Jose Manuel Hicks MD Pre Op Diagnosis: Acute cholecystitis Patient Data Age: 80 Gender: F Height: 1.7 m Weight: 75.7 kg Last Vital Signs Temp 36.4 C L 09/19/25 13:51 Pulse 90 09/19/25 13:51 Resp 17 09/19/25 13:51 BP 156/52 H 09/19/25 13:51 Pulse Ox 96 09/19/25 13:51 O2 Del Method Room Air 09/19/25 08:13 Allergies Allergy/AdvReac Type Severity Reaction Status Date / Time No Known Allergies Allergy Verified 09/19/25 05:01 Home Medications ?Medication ?Instructions ?Recorded ?Confirmed ?Type cyanocobalamin (vitamin B-12) 500 500 mcg PO DAILY 07/02/24 09/19/25 History mcg tablet pravastatin 20 mg tablet See Rx Instructions .Route 05/14/25 09/19/25 Rx .COMPLEX #90 tabs lisinopril 20 mg tablet 20 mg PO DAILY #90 tabs 06/29/25 09/19/25 Rx Laboratory Tests 09/18/25 09/18/25 09/19/25 22:52 23:50 00:49 WBC 15.2 H K/mm3 (4.5-10.0) RBC 5.35 M/mm3 (4.2-5.4) Hgb 16.1 H g/dL (12.0-15.0) Hct 49.3 H % (37.0-47.0) MCV 92.1 fl (80-100) MCH 30.1 pg (26-34) MCHC 32.7 g/dl (32-36) RDW 12.5 % (11.5-14.5) Plt Count 342 k/mm3 (150-375) MPV 8.7 fl (7.4-10.4) Immature Gran % (Auto) 0.5 % (0-0.5) Neut % (Auto) 78.1 H % (45.5-73.1) Lymph % (Auto) 11.9 L % (18.3-44.2) [place] % (Auto) 8.2 % (2.6-8.5) Eos % (Auto) 0.7 % (0-4.4) Baso % (Auto) 0.6 % (0.2-1.2) Lymph # (Auto) 1.80 K/mm3 (0.9-3.2) [place] # (Auto) 1.3 H K/mm3 (0.1-0.6) Eos # (Auto) 0.1 K/mm3 (0-0.3) Baso # (Auto) 0.1 K/mm3 (0.0-0.1) Abs Immat Gran (auto) 0.07 H K/mm3 (0.00-0.031) Absolute Neuts (auto) 11.9 H K/mm3 (1.3-6.7) Absolute Nucleated RBC 0.000 K/mm3 (0.0-0.012) Nucleated RBC % 0.0 % (0.0-0.2) Sodium 134 L mmol/L (137-145) Potassium 3.6 mmol/L (3.4-5.0) Chloride 104 mmol/L (98-107) Carbon Dioxide 23 mmol/L (22-30) Anion Gap 7 mmol/L (4-12) BUN 14 mg/dL (7-17) Creatinine 1.12 H mg/dL (0.7-1.0) Estim Creat Clear Calc 33 ml/min Estimated GFR 47 L (59 - ) Glucose 175 H mg/dL (65-110) Hemoglobin A1c 5.3 % (<5.7) Lactic Acid 1.0 mmol/L (0.7-2.0) Calcium 9.1 mg/dL (8.4-10.2) Total Bilirubin 1.5 H mg/dL (0.2-1.3) AST 23 U/L (14-36) ALT 18 U/L (6-35) Alkaline Phosphatase 88 U/L (38-126) Troponin I < 0.012 ng/mL (0.000-0.034) Total Protein 7.4 g/dL (6.3-8.2) Albumin 3.9 g/dL (3.5-5.1) Lipase 129 U/L (23-300) Urine Color Dark yellow (Yellow) Urine Appearance Turbid H (Clear) Urine pH 5.5 (5.0-9.0) Ur Specific [place] 1.021 (1.001-1.035) Urine Protein 2+ H mg/dL (Negative) Urine Glucose (UA) Trace H mg/dL (Negative) Urine Ketones 2+ H mg/dL (Negative) Ur Blood (Man) Non-hemolyzed trace H (Negative) Urine Nitrate Positive H (Negative) Urine Bilirubin 2+ H (Negative) Urine Urobilinogen 4.0 H mg/dL (<2.0) Add Ur Microanalysis Reviewed Leukocyte Esterase Rfl 3+ H MEMO/UL (Negative) Urine RBC 11-20 H /hpf (0-2) Urine WBC >100 H /hpf (0-3) Ur Squamous Epith Cells Many H /hpf (Few) Urine Bacteria 4+ H /hpf Urine Casts >20 09/19/25 08:23 WBC 8.8 K/mm3 (4.5-10.0) RBC 4.97 M/mm3 (4.2-5.4) Hgb 15.1 H g/dL (12.0-15.0) Hct 45.1 % (37.0-47.0) MCV 90.7 fl (80-100) MCH 30.4 pg (26-34) MCHC 33.5 g/dl (32-36) RDW 12.6 % (11.5-14.5) Plt Count 274 k/mm3 (150-375) MPV 8.7 fl (7.4-10.4) Immature Gran % (Auto) 0.3 % (0-0.5) Neut % (Auto) 67.3 % (45.5-73.1) Lymph % (Auto) 21.3 % (18.3-44.2) [place] % (Auto) 9.4 H % (2.6-8.5) Eos % (Auto) 1.1 % (0-4.4) Baso % (Auto) 0.6 % (0.2-1.2) Lymph # (Auto) 1.88 K/mm3 (0.9-3.2) [place] # (Auto) 0.8 H K/mm3 (0.1-0.6) Eos # (Auto) 0.1 K/mm3 (0-0.3) Baso # (Auto) 0.1 K/mm3 (0.0-0.1) Abs Immat Gran (auto) 0.03 K/mm3 (0.00-0.031) Absolute Neuts (auto) 5.9 K/mm3 (1.3-6.7) Absolute Nucleated RBC 0.000 K/mm3 (0.0-0.012) Nucleated RBC % 0.0 % (0.0-0.2) Sodium 134 L mmol/L (137-145) Potassium 3.8 mmol/L (3.4-5.0) Chloride 105 mmol/L (98-107) Carbon Dioxide 27 mmol/L (22-30) Anion Gap 2 L mmol/L (4-12) BUN 12 mg/dL (7-17) Creatinine 0.83 mg/dL (0.7-1.0) Estim Creat Clear Calc 44 ml/min Estimated GFR > 60 (59 - ) Glucose 104 mg/dL (65-110) Hemoglobin A1c Lactic Acid Calcium 8.6 mg/dL (8.4-10.2) Total Bilirubin 3.9 H mg/dL (0.2-1.3) AST 420 H U/L (14-36) ALT 249 H U/L (6-35) Alkaline Phosphatase 183 H U/L (38-126) Troponin I Total Protein 6.7 g/dL (6.3-8.2) Albumin 3.3 L g/dL (3.5-5.1) Lipase 131 U/L (23-300) Urine Color Urine Appearance Urine pH Ur Specific [place] Urine Protein Urine Glucose (UA) Urine Ketones Ur Blood (Man) Urine Nitrate Urine Bilirubin Urine Urobilinogen Add Ur Microanalysis Leukocyte Esterase Rfl Urine RBC Urine WBC Ur Squamous Epith Cells Urine Bacteria Urine Casts Patient hx anesthesia problems: none Family hx anesthesia problems: none Results Review: All pre-operative results and documents have been reviewed as part of the pre-operative evaluation. [facility] Past Medical History Medical History Vitamin B12 deficiency Scoliosis Hypothyroidism Anxiety Dyslipidemia Hyperopia of both eyes Abnormal skin growth Screening for cholesterol level Hypertension Surgical History Surgical History H/O dilation and curettage Family History Family History Grandparent Heart disease Cerebrovascular accident Social History Social History Social History: 06/27/25 declined SDOH Smoking status: Former smoker Alcohol intake: never Substance use: never Lack of Transportation: No Lack of Food: Never True Current Housing: I Have Housing Concerned About Future Housing: No Difficulty Paying Gas/Electric Bills: No Difficulty Paying for Meds: No Currently Unemployed: No Education: Associate Degree Difficulty w/ Childcare or Family Care: No Living arrangements: alone Occupation/Education: retired Gender identity (if verbalized by the patient): Female Spiritual care concerns: No Anes - Eval Final PreProcedure Day of Procedure 09/19/25 15:46 Patient weight: overweight Heart: regular rate and rhythm Lungs: clear to auscultation Airway: Mallampati scale class II Neurological: alert and oriented Last oral intake: >/= 8 hours Emergent: no Anesthetic plan: proceed Anesthesia type and monitoring: general ETT and standard monitoring Results Review: All pre-operative results and documents have been reviewed as part of the pre-operative evaluation. Informed Consent: The patient's anesthetic plan and its attendant risks and benefits were discussed with the patient/family/POA. Questions were solicited and answers provided to the satisfaction of the patient/family/POA.
--- NOTE | 2025-09-19 16:35 | WPDHPUPDATE1 ---
History and Physical Update Update Date/Time: 09/19/25 16:35 History and Physical has been reviewed, including an updated exam of the patient. There are NO changes in the patient's condition. Risks, benefits, and alternatives have been discussed and questions answered. Patient agrees to proceed with procedure.
[2025-09-19] MEDS: BUPIVACAINE/EPINEPHRINE 0.5% 50 ML VIAL 30 ML INFILTRATE (17:24)
--- NOTE | 2025-09-19 17:34 | S_PTH ---
PATIENT: Shikha Amos LOC: [id number] U#:[id number] AGE/SX: 80/F ROOM: 249 RE09/19/[address]: Jose Manuel Hicks MD : 1945 BED: 01 DIS: 09/20/2025 SPEC #: [id number] RECD: 09/20/25 07:47 STATUS: [place] REHerlinda #: [id number] JUDIE: 09/19/25 17:[address]: Nitish Leblanc DEPT: [facility] Surgical RECD BY: Lauren Wilson ENTERED: 09/20/25 07:47 SP TYPE: Surgical OTHR DR: FELY Leon PA Amardeep Shrestha, MD Tissues: A - Gallbladder Procedures: Hematoxylin and Eosin Stain Gross and Microscopic Level 3
--- NOTE | 2025-09-19 17:58 | W.PM.PROC2 ---
Procedure Note - Detailed Date of Procedure 09/19/25 Pre-op Diagnosis Acute calculous cholecystitis Post-op Diagnosis Same (Acute gangrenous calculous cholecystitis) Procedure Performed Laparoscopic cholecystectomy Surgeon Nitish Leblanc DO Anesthesia General and Local (0.5% bupivacaine) Indications This is an 80-year-old woman who presented to the emergency department last night with right upper quadrant pain this started about 3 days prior. She was found to have leukocytosis and CT showed evidence of acute cholecystitis. She was started on broad-spectrum IV antibiotics and admitted for further treatment. Discussions were made with the patient about treatment options and decision was made to proceed with laparoscopic cholecystectomy, possible open. Findings Laparoscopic cholecystectomy was performed. The gallbladder appeared acutely inflamed with signs of gangrenous changes to the gallbladder wall. The gallbladder wall was also thickened and hyperemic. There were pericholecystic adhesions around the gallbladder. The cystic duct appeared normal in size. There were many small gallstones within the gallbladder. There was some spillage of bile and a few small gallstones during dissection of the gallbladder off of the liver bed. The stones were retrieved and the area was irrigated with sterile saline. No other abnormalities were noted. Due to the mild bleeding along the gallbladder fossa, decision was made to spray FloSeal to glass etcher helper with hemostasis. The gallbladder was removed and sent to the lab for pathology. Description of Procedure Procedure as well as risks, benefits, and alternatives were discussed with patient. Written consent was obtained and placed in chart prior to procedure. The patient was brought back to surgical suite. Patient was placed in supine position on operating table. Time-out was done to confirm patient and procedure. Patient was then intubated by the anesthesia department. Abdomen was prepped and draped in sterile fashion using chlorhexidine prep. 0.5% bupivacaine with epinephrine was infiltrated at each site of incision. A 5 millimeter incision was made near the umbilicus, and a 5 millimeter Optiview trocar was advanced through the abdominal layers under direct visualization. Once inside the abdominal cavity, carbon dioxide was insufflated to create a pneumoperitoneum. The camera was inserted and the abdomen was inspected. No immediate abnormalities were identified. The patient was placed in reverse Trendelenburg position and rotated slightly to the left. An 11 millimeter incision was made in the subxiphoid region, and an 11 millimeter trocar was inserted under direct visualization. Two 5 millimeter incisions were made in the right upper quadrant, and two 5 millimeter trocars were inserted under direct visualization. The gallbladder was identified and grasped at the fundus and retracted superiorly. It was then grasped at the infundibulum retracted laterally. Careful dissection around the neck of the gallbladder was performed using blunt dissection with a [place] grasper and hook electrocautery. The cystic duct was identified, and a window was created behind it. The cystic artery was also identified and a window was created behind it. The critical view of safety was identified, visualizing the cystic duct running directly into the neck of the gallbladder, and the cystic artery running directly into the wall of the gallbladder. A 5 millimeter clip supervisor pressing department was then used to place 2 clips proximally and 1 clip distally on both the cystic duct and cystic artery. They were then both transected using endoscopic scissors. Once safely away from the neil hepatitis, the gallbladder was dissected free from the liver bed using hook electrocautery. Hemostasis was achieved along the way. The gallbladder was removed completely and then removed through the subxiphoid port. The liver bed was then inspected. Hemostasis appeared adequate, and our clips appeared secure. The area was gently irrigated with sterile saline. No other abnormalities were seen. The patient was flattened out in bed, and 1 final inspection was made around the abdominal cavity. The subxiphoid port was removed, and a Sandip David cone was used to approximate the fascia with an 0-Vicryl simple interrupted suture. The remaining ports were then removed under direct visualization, the camera was removed, and the pneumoperitoneum was released. The skin of the incisions was approximated using 4-0 Monocryl subcuticular sutures. Exofin glue was applied on top. The patient was then awakened from anesthesia, extubated, and transferred to recovery. Estimated Blood Loss 50 Urine Output 200 Pathology Yes (Gallbladder) Complications No immediate complications Condition Stable Disposition Floor [facility] Billing Surgery - Charge Forward: Surgery Billing
[2025-09-19] MEDS: LACTATED RINGERS 1,000 ML 30 ML IV CONT ×2 (17:59)
[2025-09-19] MEDS: HYDROcodone/acetaminophen (*CRX) 5-325 MG TABLET 1 TAB PO (20:18)
[2025-09-20] VITALS (7 sets, daily range): BP systolic 107–134; BP diastolic 47–63; PULSE 57–69; RESP 16–18; TEMP 36.2–36.7; O2SAT 97–99
[2025-09-20] MEDS: PIPERACILLIN/TAZOBACTAM SOD 3.375 GM in SODIUM CHLORIDE 0.9% IV 50 ML 100 ML IVPB ×3 (01:19→12:54)
[2025-09-20 05:22] LABS: Hematocrit 45.2 % (37.0-47.0); Hemoglobin 14.6 g/dL (12.0-15.0); Immature Granulocyte Percent A 0.5 % (0-0.5); Lymphocytes Absolute Auto 0.94 K/mm3 (0.9-3.2); Mean Corpuscular HGB Conc 32.3 g/dl (32-36); Mean Corpuscular Hemoglobin 30.2 pg (26-34); Mean Corpuscular Volume 93.4 fl (80-100); Nucleated Red Blood Cells Absolute Auto 0.000 K/mm3 (0.0-0.012); Nucleated Red Blood Cells Perc 0.0 % (0.0-0.2); Platelet Count Result 289 k/mm3 (150-375); Red Blood Count 4.84 M/mm3 (4.2-5.4); White Blood Count 10.2 K/mm3 (4.5-10.0)
[2025-09-20 05:35] LABS: Alanine Aminotransferase 167 U/L (6-35); Albumin Level 3.1 g/dL (3.5-5.1); Alkaline Phosphatase 138 U/L (38-126); Anion Gap 3 mmol/L (4-12); Aspartate Amino Transferase 124 U/L (14-36); Bilirubin,Total 1.6 mg/dL (0.2-1.3); Blood Urea Nitrogen 13 mg/dL (7-17); Calcium 8.4 mg/dL (8.4-10.2); Carbon Dioxide 27 mmol/L (22-30); Chloride 106 mmol/L (98-107); Estimated CRCL calculation 38 ml/min; Estimated Glomerular Filt Rate 55; Glucose 127 mg/dL (65-110); Potassium 4.6 mmol/L (3.4-5.0); Sodium 136 mmol/L (137-145); Total Protein 6.3 g/dL (6.3-8.2)
[2025-09-20] MEDS: IBUPROFEN IV 800 MG/200 ML 800 MG/200 ML BAG 400 MG IVPB (06:57)
--- NOTE | 2025-09-20 07:18 | P.PNIM_ITS ---
Assessment and Plan Assessment and Plan (1) Acute calculous cholecystitis: Code(s): K80.00 - Calculus of gallbladder with acute cholecystitis without obstruction Status: Acute Assessment and Plan: - CT A/P with acute necrotic cholecystitis - afebrile, HDS - AST 420, ALT 249, alk phos 183, T bili 3.9 - trending down - leukocytosis resolved - s/p laparoscopic CCY 09/19. Gallbladder with necrotic changes. - continue IV Zosyn - general surgery - (2) MAHSA (acute kidney injury): Code(s): N17.9 - Acute kidney failure, unspecified Status: Acute Assessment and Plan: - admit Cr 1.1, baseline 0.8 - resolved with IV fluids - monitor BMP (3) Abnormal urinalysis: Code(s): R82.90 - Unspecified abnormal findings in urine Status: Acute Assessment and Plan: -Denies urinary symptoms. -on IV Zosyn for cholecystitis, but not feel specific treatment for UTI is needed (4) Hypertension: Qualifiers: Hypertension type: primary hypertension Qualified Code(s): I10 - Essential (primary) hypertension Code(s): I10 - Essential (primary) hypertension Status: Chronic Assessment and Plan: -on lisinopril daily, held perioperatively Plan Code status: full code DVT prophylaxis: SCDs Dispo:TBD pending course Medical Record Review I have reviewed the following patient records and this information was taken into consideration when formulating the assessment and plan.: previous labs Subjective Date/time seen: 09/20/25 07:18 Interval history: Patient seen and examined at bedside. Minimal pain this AM. Denies nausea, vomiting. Review of Systems Review of Systems: All systems reviewed & are unremarkable except as noted in HPI and below Exam Narrative: General: NAD Eyes: EOMI ENT: neck supple Cardiovascular: Regular rate and rhythm Respiratory: Clear to auscultation, respirations even and unlabored on RA Gastrointestinal: Soft, + Carnes's sign Genitourinary: no suprapubic tenderness Musculoskeletal: No edema Skin: warm, dry Neuro: Alert. Psych: Mood appropriate Objective Data Vital Signs Vital Signs: Vital Signs - 24 hr 09/19/25 07:40 09/19/25 07:40 09/19/25 08:13 Temperature Pulse Rate 86 Respiratory Rate Blood Pressure Pulse Oximetry 97 Oxygen Delivery Room Air Room Air Oxygen Flow Rate 09/19/25 13:51 09/19/25 17:59 09/19/25 18:00 Temperature 97.5 F L 97.1 F L Pulse Rate 90 68 69 Respiratory Rate 17 20 19 Blood Pressure 156/52 H 106/63 106/58 L Pulse Oximetry 96 98 98 Oxygen Delivery Simple Face Mask Simple Face Mask Oxygen Flow Rate 8 8 09/19/25 18:15 09/19/25 18:30 09/19/25 18:45 Temperature Pulse Rate 75 74 79 Respiratory Rate 19 18 19 Blood Pressure 144/65 H 143/67 H 153/69 H Pulse Oximetry 100 100 96 Oxygen Delivery Simple Face Mask Simple Face Mask Room Air Oxygen Flow Rate 8 8 09/19/25 19:00 09/19/25 19:06 09/19/25 19:21 Temperature 97.8 F 98.0 F 97.7 F Pulse Rate 77 79 75 Respiratory Rate 18 17 17 Blood Pressure 148/61 H 157/70 H 155/54 H Pulse Oximetry 96 97 98 Oxygen Delivery Room Air Oxygen Flow Rate 09/19/25 19:51 09/19/25 20:00 09/19/25 20:00 Temperature 97.6 F Pulse Rate 71 83 Respiratory Rate 17 Blood Pressure 149/60 H Pulse Oximetry 98 Oxygen Delivery Room Air Oxygen Flow Rate 09/19/25 20:49 09/20/25 00:00 09/20/25 00:50 Temperature 97.5 F L 97.1 F L Pulse Rate 73 66 62 Respiratory Rate 17 17 Blood Pressure 146/55 H 122/57 L Pulse Oximetry 97 98 Oxygen Delivery Oxygen Flow Rate 09/20/25 04:00 09/20/25 04:49 Temperature 98.0 F Pulse Rate 59 L 57 L Respiratory Rate 16 Blood Pressure 107/47 L Pulse Oximetry 97 Oxygen Delivery Oxygen Flow Rate Intake/Output Intake/Output: Intake & Output 09/17/25 09/18/25 09/19/25 09/20/25 23:59 23:59 23:59 23:59 Intake Total 150 340 Output Total 2400 700 Balance -2250 -360 Meds/Results Medications: Active Medications Generic Name Dose Route Start Last Admin Trade Name Freq PRN Reason Stop Dose Admin Acetaminophen 650 mg 09/19/25 00:48 Acetaminophen 325 Mg Tablet PO Q4H PRN Mild Pain (1-3) or Fever Hydrocodone Bitart/Acetaminophen 1 tab 09/19/25 19:06 09/19/25 20:18 Hydrocodone/Acetaminophen (*Crx) 5-325 Mg Tablet PO 1 tab Q4H PRN Administration Pain Rated 4-6 Hydrocodone Bitart/Acetaminophen 1 tab 09/19/25 19:06 Hydrocodone/Acetaminophen (*Crx) 7.5-325 Mg Tablet PO Q4H PRN Pain Rated 7-10 Cyanocobalamin 500 mcg 09/20/25 09:00 Cyanocobalamin 500 Mcg Tablet PO DAILY AMIRA Enoxaparin Sodium 40 mg 09/20/25 09:00 Enoxaparin 40 Mg/0.4 Ml Syringe SUB-Q DAILY AMIRA Piperacillin Sod/Tazobactam 50 mls @ 100 mls/hr 09/19/25 07:00 09/20/25 06:39 Sod 3.375 gm/ Sodium Chloride IVPB Infused Q6H [facility] Infusion Ibuprofen 800 mg in 200 mls @ 400 mls/hr 09/19/25 19:06 09/20/25 06:57 Caldolor 800 Mg/200 Ml IVPB 400 mls/hr Q6H PRN Administration Breakthrough Pain Rated 1-3 or NPO Lisinopril 20 mg 09/20/25 09:00 Lisinopril 20 Mg Tablet PO DAILY [facility] Morphine Sulfate 2 mg 09/19/25 19:06 Morphine Sulfate (*Crx) 4 Mg/Ml Inj IV PUSH Q2H PRN Breakthrough Pain Rated 4-6 or NPO Morphine Sulfate 4 mg 09/19/25 19:06 Morphine Sulfate (*Crx) 4 Mg/Ml Inj IV PUSH Q2H PRN Breakthrough Pain Rated 7-10 or NPO Ondansetron HCl 4 mg 09/19/25 00:48 Ondansetron Inj 4 Mg/2 Ml Vial IV PUSH Q4H PRN Nausea Pravastatin Sodium 20 mg 09/20/25 09:00 Pravastatin Sodium 20 Mg Tablet PO DAILY [facility] Radiology Results: ITS Impressions Abdomen/Pelvis CT 09/19/25 06:36 IMPRESSION: 1. Acute necrotic cholecystitis. Labs Labs: Laboratory Results - last 24 hr 09/18/25 09/19/25 09/20/25 22:52 08:23 04:53 WBC 8.8 10.2 H RBC 4.97 4.84 Hgb 15.1 H 14.6 Hct 45.1 45.2 MCV 90.7 93.4 MCH 30.4 30.2 MCHC 33.5 32.3 RDW 12.6 12.5 Plt Count 274 289 MPV 8.7 8.9 Immature Gran % (Auto) 0.3 0.5 Neut % (Auto) 67.3 84.2 H Lymph % (Auto) 21.3 9.2 L [place] % (Auto) 9.4 H 5.7 Eos % (Auto) 1.1 0.1 Baso % (Auto) 0.6 0.3 Lymph # (Auto) 1.88 0.94 [place] # (Auto) 0.8 H 0.6 Eos # (Auto) 0.1 0.0 Baso # (Auto) 0.1 0.0 Abs Immat Gran (auto) 0.03 0.05 H Absolute Neuts (auto) 5.9 8.6 H Absolute Nucleated RBC 0.000 0.000 Nucleated RBC % 0.0 0.0 Sodium 134 L 136 L Potassium 3.8 4.6 Chloride 105 106 Carbon Dioxide 27 27 Anion Gap 2 L 3 L BUN 12 13 Creatinine 0.83 0.97 Estim Creat Clear Calc 44 38 Estimated GFR > 60 55 L Glucose 104 127 H Hemoglobin A1c 5.3 Calcium 8.6 8.4 Total Bilirubin 3.9 H 1.6 H AST 420 H 124 H ALT 249 H 167 H Alkaline Phosphatase 183 H 138 H Total Protein 6.7 6.3 Albumin 3.3 L 3.1 L Lipase 131 Quality VTE Prophylaxis VTE prophylaxis: mechanical ordered
[2025-09-20] MEDS: PRAVASTATIN SODIUM 20 MG TABLET PO (08:22)
[2025-09-20] MEDS: ENOXAPARIN 40 MG/0.4 ML SYRINGE SUB-Q (08:24)
[2025-09-20] MEDS: CYANOCOBALAMIN 500 MCG TABLET PO (08:24)
--- NOTE | 2025-09-20 09:53 | WPDANESPN ---
Anes - Prog Note Post-Op Date/Time: 09/20/25 09:53 Cardiovascular status: normal Respiratory status: normal Airway patency: baseline Mental status: baseline Post-Op hydration status: normal Vital Signs: Last Vital Signs Temp 36.2 C L 09/20/25 08:21 Pulse 69 09/20/25 08:24 Resp 18 09/20/25 08:24 BP 134/63 09/20/25 08:21 Pulse Ox 99 09/20/25 08:24 O2 Del Method Room Air 09/20/25 08:24 O2 Flow Rate 8 09/19/25 18:30 Pain Score (VAS): 3 I/O: Intake & Output 09/19/25 09/20/25 09/20/25 23:59 07:59 15:59 Intake Total 50 340 240 Output Total 800 700 Balance -750 -360 240 Laboratory Tests 09/20/25 04:53 09/20/25 04:53 09/20/25 04:53 WBC 10.2 H RBC 4.84 Hgb 14.6 Hct 45.2 MCV 93.4 MCH 30.2 MCHC 32.3 RDW 12.5 Plt Count 289 MPV 8.9 Immature Gran % (Auto) 0.5 Neut % (Auto) 84.2 H Lymph % (Auto) 9.2 L [place] % (Auto) 5.7 Eos % (Auto) 0.1 Baso % (Auto) 0.3 Lymph # (Auto) 0.94 [place] # (Auto) 0.6 Eos # (Auto) 0.0 Baso # (Auto) 0.0 Abs Immat Gran (auto) 0.05 H Absolute Neuts (auto) 8.6 H Absolute Nucleated RBC 0.000 Nucleated RBC % 0.0 Sodium 136 L Potassium 4.6 Chloride 106 Carbon Dioxide 27 Anion Gap 3 L BUN 13 Creatinine 0.97 Estim Creat Clear Calc 38 Estimated GFR 55 L Glucose 127 H Calcium 8.4 Total Bilirubin 1.6 H AST 124 H ALT 167 H Alkaline Phosphatase 138 H Total Protein 6.3 Albumin 3.1 L Post-procedural complaints: none Patient Feedback: Patient satisfied with anesthetic care.
--- NOTE | 2025-09-20 11:07 | PM.PNGS ---
Progress Note: A&P Assessment and Plan (1) Acute calculous cholecystitis: Code(s): K80.00 - Calculus of gallbladder with acute cholecystitis without obstruction Status: Acute Assessment and Plan: POD1 and doing well. Patient had acute gangrenous calculous cholecystitis. Her postoperative pain is well controlled. She is tolerating a low fat diet. Okay to discharge on another 5 days of oral antibiotics and a low fat diet. Will have her f/u with Dr. Leblanc in 2 weeks. Plan Discussed patient's case and plan of care with Dr. Leblanc. Subjective Subjective Date/Time Seen: 09/20/25 11:07 Post Op day: 1 (Laparoscopic cholecystectomy) Patient reports: no new complaints, feels better, pain is less, tolerating a regular diet (low fat), voiding w/o difficulty, flatus and afebrile Interval history: Patient feeling much better today. Reports her RUQ abdominal pain has resolved after surgery. She has some mild soreness in the RUQ that she states feels like a sore muscle from all the vomiting she did prior to admission. The Ibuprofen helped the most with this soreness. No nausea or vomiting now and tolerated low fat diet for breakfast. Exam Const: General: comfortable and no acute distress Orientation/consciousness: patient oriented x3 Resp: Effort & Inspection: normal respiratory effort Auscultation: clear to auscultation bilaterally Cardio: Rate: regular rate Rhythm: regular rhythm GI: Inspection: non-distended and incision (incisions dry and intact) GI Palp: Yes Soft to palpation, Yes Tenderness to palpation present (GI) (very mild RUQ tenderness) and No Guarding due to palpation present (GI) Auscultation: normal bowel sounds Neuro: General: moves all extremities and no focal motor deficits Extrem: General: no calf tenderness and no edema Psych: Mental Status: mental status grossly normal Insight: Good insight present (Psych) Objective Data Vital Signs Vital Signs: Vital Signs - 24 hr 09/19/25 13:51 09/19/25 17:59 09/19/25 18:00 Temperature 97.5 F L 97.1 F L Pulse Rate 90 68 69 Respiratory Rate 17 20 19 Blood Pressure 156/52 H 106/63 106/58 L Pulse Oximetry 96 98 98 Oxygen Delivery Simple Face Mask Simple Face Mask Oxygen Flow Rate 8 8 09/19/25 18:15 09/19/25 18:30 09/19/25 18:45 Temperature Pulse Rate 75 74 79 Respiratory Rate 19 18 19 Blood Pressure 144/65 H 143/67 H 153/69 H Pulse Oximetry 100 100 96 Oxygen Delivery Simple Face Mask Simple Face Mask Room Air Oxygen Flow Rate 8 8 09/19/25 19:00 09/19/25 19:06 09/19/25 19:21 Temperature 97.8 F 98.0 F 97.7 F Pulse Rate 77 79 75 Respiratory Rate 18 17 17 Blood Pressure 148/61 H 157/70 H 155/54 H Pulse Oximetry 96 97 98 Oxygen Delivery Room Air Oxygen Flow Rate 09/19/25 19:51 09/19/25 20:00 09/19/25 20:00 Temperature 97.6 F Pulse Rate 71 83 Respiratory Rate 17 Blood Pressure 149/60 H Pulse Oximetry 98 Oxygen Delivery Room Air Oxygen Flow Rate 09/19/25 20:49 09/20/25 00:00 09/20/25 00:50 Temperature 97.5 F L 97.1 F L Pulse Rate 73 66 62 Respiratory Rate 17 17 Blood Pressure 146/55 H 122/57 L Pulse Oximetry 97 98 Oxygen Delivery Oxygen Flow Rate 09/20/25 04:00 09/20/25 04:49 09/20/25 08:21 Temperature 98.0 F 97.1 F L Pulse Rate 59 L 57 L 69 Respiratory Rate 16 18 Blood Pressure 107/47 L 134/63 Pulse Oximetry 97 99 Oxygen Delivery Oxygen Flow Rate 09/20/25 08:24 09/20/25 08:24 Temperature Pulse Rate 69 69 Respiratory Rate 18 Blood Pressure Pulse Oximetry 99 Oxygen Delivery Room Air Oxygen Flow Rate Intake/Output Intake/Output: Intake & Output 09/17/25 09/18/25 09/19/25 09/20/25 23:59 23:59 23:59 23:59 Intake Total 150 580 Output Total 2400 700 Balance -2250 -120 Meds/Results Medications: Active Medications Generic Name Dose Route Start Last Admin Trade Name Freq PRN Reason Stop Dose Admin Acetaminophen 650 mg 09/19/25 00:48 Acetaminophen 325 Mg Tablet PO Q4H PRN Mild Pain (1-3) or Fever Hydrocodone Bitart/Acetaminophen 1 tab 09/19/25 19:06 09/19/25 20:18 Hydrocodone/Acetaminophen (*Crx) 5-325 Mg Tablet PO 1 tab Q4H PRN Administration Pain Rated 4-6 Hydrocodone Bitart/Acetaminophen 1 tab 09/19/25 19:06 Hydrocodone/Acetaminophen (*Crx) 7.5-325 Mg Tablet PO Q4H PRN Pain Rated 7-10 Cyanocobalamin 500 mcg 09/20/25 09:00 09/20/25 08:24 Cyanocobalamin 500 Mcg Tablet PO 500 mcg DAILY AMIRA Administration Enoxaparin Sodium 40 mg 09/20/25 09:00 09/20/25 08:24 Enoxaparin 40 Mg/0.4 Ml Syringe SUB-Q 40 mg DAILY AMIRA Administration Piperacillin Sod/Tazobactam 50 mls @ 100 mls/hr 09/19/25 07:00 09/20/25 06:39 Sod 3.375 gm/ Sodium Chloride IVPB Infused Q6H AMIRA Infusion Lisinopril 20 mg 09/20/25 09:00 09/20/25 08:22 Lisinopril 20 Mg Tablet PO 20 mg DAILY AMIRA Administration Morphine Sulfate 2 mg 09/19/25 19:06 Morphine Sulfate (*Crx) 4 Mg/Ml Inj IV PUSH Q2H PRN Breakthrough Pain Rated 4-6 or NPO Morphine Sulfate 4 mg 09/19/25 19:06 Morphine Sulfate (*Crx) 4 Mg/Ml Inj IV PUSH Q2H PRN Breakthrough Pain Rated 7-10 or NPO Ondansetron HCl 4 mg 09/19/25 00:48 Ondansetron Inj 4 Mg/2 Ml Vial IV PUSH Q4H PRN Nausea Pravastatin Sodium 20 mg 09/20/25 09:00 09/20/25 08:22 Pravastatin Sodium 20 Mg Tablet PO 20 mg DAILY AMIRA Administration Radiology Results: ITS Impressions Abdomen/Pelvis CT 09/19/25 06:36 IMPRESSION: 1. Acute necrotic cholecystitis. Labs Labs: Laboratory Results - last 24 hr 09/20/25 04:53 WBC 10.2 H RBC 4.84 Hgb 14.6 Hct 45.2 MCV 93.4 MCH 30.2 MCHC 32.3 RDW 12.5 Plt Count 289 MPV 8.9 Immature Gran % (Auto) 0.5 Neut % (Auto) 84.2 H Lymph % (Auto) 9.2 L [place] % (Auto) 5.7 Eos % (Auto) 0.1 Baso % (Auto) 0.3 Lymph # (Auto) 0.94 [place] # (Auto) 0.6 Eos # (Auto) 0.0 Baso # (Auto) 0.0 Abs Immat Gran (auto) 0.05 H Absolute Neuts (auto) 8.6 H Absolute Nucleated RBC 0.000 Nucleated RBC % 0.0 Sodium 136 L Potassium 4.6 Chloride 106 Carbon Dioxide 27 Anion Gap 3 L BUN 13 Creatinine 0.97 Estim Creat Clear Calc 38 Estimated GFR 55 L Glucose 127 H Calcium 8.4 Total Bilirubin 1.6 H AST 124 H ALT 167 H Alkaline Phosphatase 138 H Total Protein 6.3 Albumin 3.1 L
--- NOTE | 2025-09-20 12:50 | P.DS_ITS ---
DS: Admitting Diagnosis Discharge Date 09/20/25 Admitting Diagnosis -acute cholecystitis -MAHSA DS: Discharge Diagnosis Discharge Diagnosis (1) Acute calculous cholecystitis: Code(s): K80.00 - Calculus of gallbladder with acute cholecystitis without obstruction Status: Acute (2) MAHSA (acute kidney injury): Code(s): N17.9 - Acute kidney failure, unspecified Status: Acute (3) Abnormal urinalysis: Code(s): R82.90 - Unspecified abnormal findings in urine Status: Acute (4) Hypertension: Qualifiers: Hypertension type: primary hypertension Qualified Code(s): I10 - Essential (primary) hypertension Code(s): I10 - Essential (primary) hypertension Status: Chronic DS: Summary Hospital Course Reason for hospitalization: -acute cholecystitis -MAHSA Hospital Course: The patient is an 80-year-old female who presented to the emergency department with several days of right upper quadrant and epigastric abdominal pain, associated with intermittent nausea and vomiting. Initial evaluation revealed leukocytosis, mild acute kidney injury, and imaging consistent with acute necrotic cholecystitis. She was started on IV fluids and broad-spectrum antibiotics (Zosyn), and general surgery was consulted. Over the next several hours, her pain improved, but her liver function tests and total bilirubin trended upward, and she was taken to the operating room for laparoscopic cholecystectomy. Intraoperatively, the gallbladder was found to be acutely inflamed with gangrenous changes and multiple small gallstones; the procedure was completed laparoscopically without immediate complications. Postoperatively, the patient recovered well, with good pain control and rapid return of bowel function. She tolerated a low-fat diet, remained afebrile, and was able to ambulate and void without difficulty. Her LFTs showed a downward trend and were improving at the time of discharge. She was transitioned to oral antibiotics to complete a 5-day course and was cleared for discharge with instructions to follow up with general surgery in two weeks. She was discharged home in stable condition. Status at Discharge Overall status at discharge: patient is progressing back to baseline Time Spent with Patient Time attestation: Total time spent providing and/or coordinating discharge services: Time spent: Greater than 30 minutes Exam Narrative: General: NAD Eyes: EOMI ENT: neck supple Cardiovascular: Regular rate and rhythm Respiratory: Clear to auscultation, respirations even and unlabored on RA Gastrointestinal: Soft, non tender Genitourinary: no suprapubic tenderness Musculoskeletal: No edema Skin: warm, dry Neuro: Alert. Psych: Mood appropriate DS: Data Data Completed and Pending Pending studies at discharge: Pending at discharge 09/19/25 17:34 Surgical [PTH] Routine Labs on day of discharge: Labs from last 24 hours 09/20/25 04:53 WBC 10.2 H RBC 4.84 Hgb 14.6 Hct 45.2 MCV 93.4 MCH 30.2 MCHC 32.3 RDW 12.5 Plt Count 289 MPV 8.9 Immature Gran % (Auto) 0.5 Neut % (Auto) 84.2 H Lymph % (Auto) 9.2 L [place] % (Auto) 5.7 Eos % (Auto) 0.1 Baso % (Auto) 0.3 Lymph # (Auto) 0.94 [place] # (Auto) 0.6 Eos # (Auto) 0.0 Baso # (Auto) 0.0 Abs Immat Gran (auto) 0.05 H Absolute Neuts (auto) 8.6 H Absolute Nucleated RBC 0.000 Nucleated RBC % 0.0 Sodium 136 L Potassium 4.6 Chloride 106 Carbon Dioxide 27 Anion Gap 3 L BUN 13 Creatinine 0.97 Estim Creat Clear Calc 38 Estimated GFR 55 L Glucose 127 H Calcium 8.4 Total Bilirubin 1.6 H AST 124 H ALT 167 H Alkaline Phosphatase 138 H Total Protein 6.3 Albumin 3.1 L Discharge Plan Discharge Attending physician on discharge: Jose Manuel Hicks Consulting providers: Helga Ross; Nitish Ken Discharging Clinician: Helga Ross Anticipated Discharge Date/Time: 09/20/25 12:50 Patient Disposition: Home Activity: may shower and other - see discharge instructions Diet: low fat Wound Care Instructions: incision open to air Discharge Instructions: DISCHARGE INSTRUCTION SHEET FOR HERNIA, GALLBLADDER AND APPENDIX SURGERIES DR. KEN 1. May shower in 24 hours, no soaking in bath x 2weeks. 2. Call office for: * Wound increasingly painful or bleeding * Vomiting * Fever of greater than 101 degrees 3. If no bowel movement for three days, take 1 oz. (30 ml) Milk of Magnesia or MiraLax 17g 1 to 2 times daily. 4. No heavy lifting > 10-15 pounds x 2 weeks for laparoscopic cholecystectomy or appendectomy. 5. No driving for 3 days or while taking narcotic pain medications. 6. Ice to surgical site for 48 hours (30 min on, then 30 min off). 7. Up walking 10-30 minutes three times per day. 8. Resume previous home medications. 9. Follow-up 10-14 days in office for wound check or as previously scheduled. ([phone]) We will make your appointment and call you with the time/date. Call if you do not hear from the office in the next few days. 10. Oral pain medications prescription to be sent to pharmacy. Take Tylenol 500mg every 6 hours and Ibuprofen 600mg every 6 hours for the first 2 days, then as needed. 11. 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 Patient Instructions: Antibiotic Form Patient Language: Vietnamese Stand Alone Forms: General Discharge Information Follow-up/Referrals: Nitish Ken DO [Physician, General Surgery] - 2 Weeks Discharge Medications: New hydrocodone-acetaminophen 5-325 mg Tablet 1 tablet PO Q6H PRN (Reason: Pain Rated 4-6) Qty: 7 0RF amoxicillin-pot clavulanate 875-125 mg tablet 1 tablet PO Q12H 5 Days Qty: 10 0RF Continued cyanocobalamin (vitamin B-12) 500 mcg tablet 500 mcg PO DAILY pravastatin 20 mg tablet See Rx Instructions .ROUTE .COMPLEX Qty: 90 2RF Dose Instruction: Take 1 tablet by mouth once daily Rx Instructions: Take 1 tablet by mouth once daily lisinopril 20 mg tablet 20 mg PO DAILY Qty: 90 1RF Date of admission: 09/19/25 00:48 Primary Care Provider: Tash Orozco I. Admitting Provider: Jose Manuel Hicks Attending physician on admission: Jose Manuel Hicks Condition: Stable
== END 2025-09-20 14:13 | disposition home or self-care (01) ==
LOC: ANHED 09-19 00:52 → ANH2MED 09-19 00:56
PROVIDERS: Nurse Practitioner; Physician Assistant; Surgery; Admitting Provider Internal Medicine; Emergency Provider Student in an Organized Health Care Education/Training Program; PCP Physician Assistant Medical; Visit Provider Internal Medicine
PROC: 0FT44ZZ Resection of Gallbladder, Percutaneous Endoscopic Approach (ICD-10-PCS; CPT 47562; principal; 2025-09-19 17:30)
DX: K80.12 Calculus of gallbladder with acute and chronic cholecystitis without obstruction (principal); K82.A1 Gangrene of gallbladder in cholecystitis; K82.A2 Perforation of gallbladder in cholecystitis; D72.829 Elevated white blood cell count, unspecified; N17.9 Acute kidney failure, unspecified; R82.90 Unspecified abnormal findings in urine; I10 Essential (primary) hypertension; E78.5 Hyperlipidemia, unspecified; E03.9 Hypothyroidism, unspecified; E53.8 Deficiency of other specified B group vitamins; M41.9 Scoliosis, unspecified; Z87.891 Personal history of nicotine dependence
CPT/HCPCS: 47562; 36415; 74177; 80053; 81001; 83036; 83605; 83690; 84484; 85025; 87040; 88304; 93005; 99285; A9270; G0378; J1100; J1650; J1741; J2003; J2405; J2543; J2704; J7030; J7120; Q9967